=== PATIENT | female | born 1965 | race Caucasian/White ===

== ENCOUNTER → 2016-12-23 13:51 | Emergency (ER) | payer BC ==
[~2016-12-23 13:51] MED LIST: CATAFLAM50 MG PO; IBU-200200 MG PO; LORCET PLUS1 TAB PO; MEDROLPAK4 PO; NEUR300 PO; ZOFRAN8 PO
== END | disposition home or self-care (01) ==
LOC: ER 13:51
DX: M54.2 Cervicalgia (principal); F17.210 Nicotine dependence, cigarettes, uncomplicated; Z88.5 Allergy status to narcotic agent; Z88.8 Allergy status to other drugs, medicaments and biological substances; Z79.899 Other long term (current) drug therapy
CPT/HCPCS: 72050; 96372; 99284; J1170; J2930